=== PATIENT | male | born 1935 | race Caucasian/White ===

== ENCOUNTER 2022-08-03 12:50 | Emergency (ER) | payer OTHER ==
--- OUTSIDE RECORDS SUMMARY | 2022-08-03 13:13 | XMS REPORT | Continuity of Care Document ---
:1935 Author Organization [facility] t Address [address] [place] [address] [address] [place] [address] Care Team Providers Name Role Phone HILDA BAUTISTA Primary Care Physician Unavailable [id number] Attending Clinician Unavailable JUANCARLOS LAMB Attending Clinician Unavailable JUANCARLOS LAMB Attending Clinician Unavailable Juancarlos Lamb MD Attending Clinician Doctor Unassigned, [facility] Attending Clinician Unavailable Rosa IGLESIAS, Cristian Randle Attending Clinician Unavailable KAVEH VILLALBA Attending Clinician Unavailable Teresita Carver DO Attending Clinician Kaveh Villalba MD Attending Clinician Komal Carver Kelcey Attending Clinician Unavailable Tamiko Yanez Attending Clinician Unavailable Rk Stern Attending Clinician [id number] Admitting Clinician Unavailable KAVEH VILLALBA Admitting Clinician Unavailable Kaveh Villalba MD Admitting Clinician HILDA BAUTISTA Admitting Clinician Unavailable Komal Carver Kelcey Admitting Clinician Unavailable Tamiko Yanez Admitting Clinician Unavailable Payers Payer Name Policy Type Policy Number Effective Date Expiration Date [facility] [id number] 2021 MEDICARE GOLD PPO 00:00:00 CSNP [facility] [id number] Problems Condition Condition Condition Status Onset Resolution Last Treating Co mments Source Name Details Category Date Date Treatment Clinician Date Longstandi Longstandi Disease Active U nivers ng ng 5-13 [place] atrial 00 Medical fibrillati fibrillati Br anch on on Syncope Syncope Disease Active Univers and and 5-12 ity of collapse collapse 00:00: [place] 00 Medical Branch History of History Problem Active 2019-05-26 Memoria fall of fall 22:22:46 l (situation (situation He rmann ) ) Active Problem 05/26/2019 [facility] Hydrocepha Hydroceph Problem Active 2019-05-26 Memoria siva alus 22:22:46 l (disorder) (disorder) He rmann Active Problem 05/26/2019 [facility] Hypertensi Hypertens Problem Active 2019-05-26 Memoria ve antionette 22:22:46 l disorder, disorder, Herm margarette systemic systemic arterial arterial (disorder) (disorder) Active Problem 05/26/2019 [facility] Hypothyroi Hypothyro Problem Active 2019-05-26 Memoria dism idism 22:22:46 l (disorder) (disorder) He rmann Active Problem 05/26/2019 [facility] Lumbosacra Lumbosacr Problem Active 2019-05-26 Memoria l stenosis al 22:22:46 l (disorder) stenosis Herm margarette (disorder) Active Problem 05/26/2019 [facility] Tremor Tremor Problem Active 2019-05-26 Phill josue (finding) (finding) 22:22:46 l Active [place] Problem 05/26/2019 [facility] Atrial Atrial Problem Active 2019-05-26 Phill josue fibrillati fibrillati 22:22:46 l on on Angelo (disorder) (disorder) Active Problem 05/26/2019 [facility] Allergies, Adverse Reactions, Alerts Allergy Allergy Status Severity Reaction(s) Onset Inactive Treating Comm ents Source Name Type Date Date Clinician Lidocain Propensi Active Other - See DOP U nivers e ty to comments 9-14 states ity of adverse 00:00: that it [place] reaction 00 "stops Medical s his Branch heart" LIDOCAIN DRUG Active Other-Cmnt Univ ers E INGREDI 9-14 ity of 00:00: [address] procaine DA Active U [facility] 11-01 00:00: [address] lidocain DA Active U [facility] e 11-01 00:00: [address] procaine DA Active U [facility]ARD[facility] 11-01 00:00: [address] lidocain DA Active U [facility] 11-01 00:00: [address] dexameth dexameth Active Memori a asone asone l [place] tamsulos tamsulos Active Memori a in in l [place] Novocain Novocain Active Memori a chaitanya Stephens Social History Social Habit Start Date Stop Date Quantity Comments Source Exposure to 2021-09-05 2021-09-15 Not sure [facility]-CoV-2 00:00:00 14:14:00 [facility] (event) [place] Tobacco use and 2020-12-17 2020-12-17 Smokeless tobacco Un iversity of exposure 00:00:00 00:00:00 non-user [facility] Social History 2018-12-09 2018-12-09 [facility] ahmet 20:29:25 20:29:25 Sex [birth year] At [birth year] Universit y of 00:00:00 00:00:00 [facility] Smoking Status Start Date Stop Date Source Never smoked tobacco [facility] Medications Ordered Filled Start Stop Current Ordering Indication Dosage Frequency Signature Comments Components Source Medication Medication Date Date Medication? Clinician (SIG) Name Name rivastigmin Yes 1.5mg Take 1 Uni vers e tartrate 7-28 capsule by ity of 1.5 mg 00:00: mouth [place] capsule 00 every Medical morning Branch and evening. Call office for refills, will need mg increase at next refill. rivastigmin 2021- No [id number] 1{patch Apply 1 Univers e 4.6 mg/24 6-15 -28 } Patch to ity of hour patch 00:00: 00:00 skin [place] 00 :00 daily. [facility] Branch galantamine Yes [id number] 4mg Take 1 Univers 4 mg tablet 6-13 tablet by ity of 00:00: mouth 2 (two) Medical times Branch daily. Call when script runs out, and we will send out another. galantamine Yes [id number] 4mg Take 1 Univers 4 mg tablet 6-13 tablet by ity of 00:00: mouth 2 (two) Medical times Branch daily. Call when script runs out, and we will send out another. galantamine Yes [id number] 4mg Take 1 Univers 4 mg tablet 6-13 tablet by ity of 00:00: mouth 2 (two) Medical times Branch daily. Call when script runs out, and we will send out another. coconut oil Yes 1{capsu Take 1 U nivers 1,000 mg 5-14 le} capsule by ity o f Cap 22:20: mouth [place] 03 daily. Medical Branch Magnesium Yes 250mg Take 250 Uni vers 250 mg Tab 5-14 mg by ity of 22:20: mouth [place] 03 daily. Medical Branch coconut oil Yes 1{capsu Take 1 U nivers 1,000 mg 5-14 le} capsule by ity o f Cap 22:20: mouth [place] 03 daily. Medical Branch Magnesium Yes 250mg Take 250 Uni vers 250 mg Tab 5-14 mg by ity of 22:20: mouth [place] 03 daily. Medical Branch coconut oil Yes 1{capsu Take 1 U nivers 1,000 mg 5-14 le} capsule by ity o f Cap 22:20: mouth [place] 03 daily. Medical Branch Magnesium Yes 250mg Take 250 Uni vers 250 mg Tab 5-14 mg by ity of 22:20: mouth [place] 03 daily. Medical Branch coconut oil Yes 1{capsu Take 1 U nivers 1,000 mg 5-14 le} capsule by ity o f Cap 22:20: mouth [place] 03 daily. Medical Branch Magnesium 0 Yes 250mg Take 250 Uni vers 250 mg Tab 5-14 mg by ity of 22:20: mouth [place] 03 daily. Medical Branch levothyroxi 2021- No [id number] 88ug Take 1 Univers ne 88 mcg 5-14 06-14 tablet by ity of tablet 00:00: 04:59 mouth [place] 00 :00 every Medical morning Branch for 30 days. levothyroxi 2021-0 2- No [id number] 88ug Take 1 Univers ne 88 mcg 5-14 -14 tablet by ity of tablet 00:00: 04:59 mouth [place] 00 :00 every Medical morning Branch for 30 days. apixaban 2021-0 Yes 2.5mg Take 2.5 Univ ers (ELIQUIS) 5-13 mg by ity of 2.5 mg 10:26: mouth 2 [place] tablet 14 (two) Medical times Branch daily. tumeric-gin 2021-0 Yes 500mg Take 500 U nivers g-olive-ore 5-13 mg by ity of g-capryl 10:26: mouth [place] 100 mg-150 14 daily. Medical mg- 50 Branch mg-150 mg Cap cyanocobala 0 Yes Inject as U nivers min, 5-13 directed ity of vitamin 10:26: weekly. [place] B, 14 Medical (VITAMIN Branch B-12 INJECTION) apixaban 2021-0 Yes 2.5mg Take 2.5 Univ ers (ELIQUIS) 5-13 mg by ity of 2.5 mg 10:26: mouth 2 [place] tablet 14 (two) Medical times Branch daily. tumeric-gin 2021-0 Yes 500mg Take 500 U nivers g-olive-ore 5-13 mg by ity of g-capryl 10:26: mouth [place] 100 mg-150 14 daily. Medical mg- 50 Branch mg-150 mg Cap cyanocobala 2021-0 Yes Inject as U nivers min, 5-13 directed ity of vitamin 10:26: weekly. B-12, 14 Medical (VITAMIN Branch B-12 INJECTION) apixaban 2021-0 Yes 2.5mg Take 2.5 Univ ers (ELIQUIS) 5-13 mg by ity of 2.5 mg 10:26: mouth 2 [place] tablet 14 (two) Medical times Branch daily. tumeric-gin 2021-0 Yes 500mg Take 500 U nivers g-olive-ore 5-13 mg by ity of g-capryl 10:26: mouth [place] 100 mg-150 14 daily. Medical mg- 50 Branch mg-150 mg Cap cyanocobala 2022-0 Yes Inject as U nivers min, 5-13 directed ity of vitamin 10:26: weekly. [place] B-12, 14 Medical (VITAMIN Branch B-12 INJECTION) apixaban Yes 2.5mg Take 2.5 Univ ers (ELIQUIS) 5-13 mg by ity of 2.5 mg 10:26: mouth 2 [place] tablet 14 (two) Medical times Branch daily. tumeric-gin Yes 500mg Take 500 U nivers g-olive-ore 5-13 mg by ity of g-capryl 10:26: mouth [place] 100 mg-150 14 daily. Medical mg- 50 Branch mg-150 mg Cap cyanocobala Yes Inject as U nivers min, 5-13 directed ity of vitamin 10:26: weekly. [place] B-, 14 Medical (VITAMIN Branch B-12 INJECTION) Thyroxine Yes 150 Memoria 9-06 microgram, l 20:15: PO, Daily, [place] 00 0 Refill(s) Amlodipine Yes 2.5 mg, Phill josue 9-06 PO, Daily, l 20:15: 0 [place] 00 Refill(s) Vitamin B12 Yes Inj 2 a Mem oria 9-06 wk, 0 l 20:15: Refill(s) [place] 00 apixaban Yes 2.5 mg, Memori a 2.5 MG Oral 9-06 PO, BID, 0 l Tablet 20:15: Refill(s) Mario n [Eliquis] 00 Thyroxine Yes 150 Memoria 9-06 microgram, l 20:15: PO, Daily, [place] 00 0 Refill(s) Amlodipine Yes 2.5 mg, Phill josue 9-06 PO, Daily, l 20:15: 0 [place] 00 Refill(s) Vitamin B12 Yes Inj 2 a Mem oria 9-06 wk, 0 l 20:15: Refill(s) [place] 00 apixaban Yes 2.5 mg, Memori a 2.5 MG Oral 9-06 PO, BID, 0 l Tablet 20:15: Refill(s) Mario n [Eliquis] 00 Thyroxine Yes 150 Memoria 9-06 microgram, l 20:15: PO, Daily, [place] 00 0 Refill(s) Amlodipine Yes 2.5 mg, Phill josue 9-06 PO, Daily, l 20:15: 0 [place] 00 Refill(s) Vitamin B12 Yes Inj 2 a Mem oria 9-06 wk, 0 l 20:15: Refill(s) [place] 00 apixaban Yes 2.5 mg, Memori a 2.5 MG Oral 9-06 PO, BID, 0 l Tablet 20:15: Refill(s) Mario n [Eliquis] Thyroxine Yes 150 Memoria 9-06 microgram, l 20:15: PO, Daily, Angel[place] 0 Refill(s) Amlodipine Yes 2.5 mg, Phill josue 9-06 PO, Daily, l 20:15: 0 [place] 00 Refill(s) Vitamin B12 Yes Inj 2 a Mem oria 12-09 wk, 0 l 20:15: Refill(s) apixaban Yes 2.5 mg, Memori a 2.5 MG Oral -06 PO, BID, 0 l Tablet 20:15: Refill(s) Mario n [Eliquis] 00 Thyroxine Yes 150 Memoria 9-06 microgram, l 20:15: PO, Daily, 0 Refill(s) Amlodipine Yes 2.5 mg, Phill josue 9-06 PO, Daily, l 20:15: 0 [place] 00 Refill(s) Vitamin B12 Yes Inj 2 a Mem oria 12-09 wk, 0 l 20:15: Refill(s) apixaban Yes 2.5 mg, Memori a 2.5 MG Oral 9-06 PO, BID, 0 l Tablet 20:15: Refill(s) Mario n [Eliquis] 00 Vital Signs Vital Name Observation Time Observation Value Comments Source Systolic blood 2021-09-15 19:31:00 134 mm[Hg] [facility] pressure [facility] Branch Diastolic blood 2021-09-15 19:31:00 67 mm[Hg] [facility] [place] pressure [facility] Heart rate 2021-09-15 19:31:00 62 /min [facility] Systolic (mm Hg) 2019-02-17 19:31:00 Phill rial [place] Diastolic (mm Hg) 2019-02-17 19:31:00 Mem orial [place] Heart Rate 2019-02-17 19:31:00 [facility] [place] Respitory Rate 2019-02-17 19:31:00 Memori al [place] Height 2019-02-17 19:31:00 172.72 cm Memorial [place] Weight 2019-02-17 19:31:00 [facility] [place] BMI Calculated 2019-02-17 19:31:00 Memori al [place] Systolic (mm Hg) 2019-01-05 20:02:00 Phill rial [place] Diastolic (mm Hg) 2019-01-05 20:02:00 Mem orial [place] Heart Rate 2019-01-05 20:02:00 Memorial [place] Respitory Rate 2019-01-05 20:02:00 Memori al [place] Height 2019-01-05 20:02:00 172.72 cm Memorial [place] Weight 2019-01-05 20:02:00 Memorial [place] BMI Calculated 2019-01-05 20:02:00 Memori al [place] Systolic (mm Hg) 2018-12-09 20:05:00 Phill rial [place] Diastolic (mm Hg) 2018-12-09 20:05:00 Mem orial [place] Heart Rate 2018-12-09 20:05:00 Memorial [place] Respitory Rate 2018-12-09 20:05:00 Memori al [place] Height 2018-12-09 20:05:00 177.8 cm Memorial [place] Weight 2018-12-09 20:05:00 Memorial [place] BMI Calculated 2018-12-09 20:05:00 Memori al [place] Procedures Procedure Date / Time Performed Performing Clinician [facility] e REFERRAL- 2021-08-29 05:01:00 Doctor Unassigned, No [facility] REQUEST/RESPONSE Name Medical Branch Encounters Start End Encounter Admission Attending Care Care Encounter Source Date/Time Date/Time Type Type Clinicians Facility Department ID 2021-05-01 Outpatient [id number] ENCPL REF [id number] [facility] 12:37:58 0803 Health Rehabil itation Jyotsna prince 2022-03-17 2022-03-17 Outpatient JUANCARLOS EVANS [facility] [id number] Univers 14:20:00 14:20:00 JUANCARLOS LAMB edenilson [facility] 2022-03-17 2022-03-17 Outpatient R JUANCARLOS LAMB [facility] [id number] Univers 14:20:00 14:20:00 JUANCARLOS LAMB [facility] 2021-10-30 2021-10-30 Telephone Adonis [facility] [id number] Univers 00:00:00 00:00:00 [facility] [id number] ity of [place] 4.2.7.2.686 Anibal as DARINEL?BLEA [id number] [address] OFFICE [facility] 2021-09-17 2021-09-17 Telephone Adonis [facility] 1.2.840.114 [id number] Univers 00:00:00 00:00:00 [facility] [id number] ity of [place] [id number] Anibal as DARINEL?BLEA [id number] [address] OFFICE [facility] 2021-09-17 2021-09-17 Telephone [facility] 1.2.840.114 [id number] Univers 00:00:00 00:00:00 [facility] [id number] ity of [place] [id number] Anibal as DARINEL?BLEA [id number] [address] OFFICE [facility] 2021-09-15 2021-09-15 Outpatient Aly MATIASJenaro JUANCARLOS [facility] [id number] Univers 14:20:00 15:23:04 JUANCARLOS LAMB edenilson [facility] 2021-09-15 2021-09-15 Office Adonis, [facility] 1.2.840.114 [id number] Univers 14:20:00 15:23:04 Visit [facility] [id number] ity of [place] 4.2.7.2.686 Anibal as DARINEL?BLEA [id number] [address] OFFICE [facility] 2021-09-15 2021-09-15 Outpatient R JUANCARLOS LAMB [facility] [id number] Univers 14:20:00 15:23:04 JUANCARLOS LAMB itedenilson [facility] 2021-08-29 2021-08-29 Orders Doctor BERNARD 1.2.840.114 [id number] Univers 00:00:00 00:00:00 Only Unassigned, ESTUARDO [id number] ity of [facility] 4.2.7.2.686 Anibal as [id number] [facility] 009 [place] 2021-08-18 2021-08-18 Transition VAN Lee 1.2.840.114 [id number] Univers 00:00:00 00:00:00 of Care Cristian Jer ERIC [id number] ity of [place] 4.2.7.2.686 [place] [id number] [facility] 403 [place] 2021-08-14 2021-08-15 Outpatient X DEEJAY [facility] [id number] Univers 10:48:00 10:20:00 [facility] 2021-08-14 2021-08-15 Emergency Teresita Carver [facility] 1.2.8 40.114 [id number] Univers 10:48:00 10:20:00 Kaveh Villalba 350.1.13.10 ity of [place] 4.2.7.2.686 [place] [facility] [id number] [facility] 081 Branch 2021-03-12 2021-03-12 Outpatient R [facility] [id number] Univers 00:00:00 00:00:00 ity of [facility] 2021-03-12 2021-03-12 Orders Doctor WAGNER 1.2.840.114 [id number] Univers 00:00:00 00:00:00 Only Unassigned, ESTUARDO [id number] ity of [facility] 4.2.7.2.686 Anibal as [id number] [facility] 009 [place] 2021-01-20 2021-01-20 Telephone Adonis [facility] 1.2.840.114 [id number] Univers 00:00:00 00:00:00 Juancarlos [facility] [id number] ity of [place] 4.2.7.2.686 Anibal as Darinel?Blea [phone] [address] Office [facility] 2021-01-13 2021-01-13 Office [facility] 1.2.840.114 [id number] Univers 10:31:44 11:26:45 Visit Juancarlos [facility] [id number] ity of [place] 4.2.7.2.686 Anibal as Darinel?Blea [id number] [address] Office [facility] 2021-01-13 2021-01-13 Outpatient Aly LAMB JUANCARLOS [facility] [id number] Univers 11:00:00 11:00:00 ADONIS JUANCARLOS ricardo [facility] 2020-12-26 2020-12-26 [facility] 1.2.594.607 [id number] Univers 12:27:34 23:59:00 Encounter Juancarlos [place] [id number] ity of [place] 4.2.7.2.686 [place] [id number] [address] 2020-12-26 2020-12-26 Outpatient JUANCARLOS [facility] [id number] Univers 00:00:00 00:00:00 ADONIS JUANCARLOS silav [facility] 2020-12-26 2020-12-26 Orders Doctor BERNARD 1.2.840.114 [id number] Univers 00:00:00 00:00:00 Only Unassigned, ESTUARDO 350.1.13.10 ity of [place] [facility] 4.2.7.2.686 Anibal as [id number] [address] 2020-12-17 2020-12-17 Office [facility] 1.2.840.114 [id number] Univers 15:26:24 16:40:09 Visit Juancarlos [facility] [id number] ity of [place] 4.2.7.2.686 Anibal as Darinel?Blea [phone] [address] Office [facility] 2020-12-17 2020-12-17 Outpatient JUANCARLOS [facility] [id number] Univers 10:00:00 10:00:00 JUANCARLOS LAMB ity of [facility] 2020-12-17 2020-12-17 Orders Doctor BERNARD 1.2.840.114 [id number] [facility] 00:00:00 00:00:00 Only Unassigned, ESTUARDO 350.1.13.10 ity of [place] [facility] 4.2.7.2.686 Anibal as [id number] [place] [address] Branch 2020-11-09 2020-11-20 Inpatient 3 ACOSTA Carver [facility] [id number] [facility] 11:57:00 12:00:00 Komal 0807 Health Rehabil itation Jyotsna prince 2020-11-02 2020-11-03 Inpatient ETHEL BatistaWillaMily [facility] [id number] [facility] 05:36:00 11:15:00 Tamiko 23 [facility] 2019-05-24 2019-05-24 Ambulatory nullFlavo MNA [id number] Memoria 15:30:00 15:30:00 Pre-Reg r Neurology 03 l [place] Angelo 2019-05-24 2019-05-24 Ambulatory nullFlavo MNA [id number] Memoria 15:30:00 15:30:00 Pre-Reg r Neurology 03 l Daren Stephens 2019-05-24 2019-05-24 Outpatient MHIE MHIE [id number] Memoria 09:30:00 09:30:00 03 l [place] 2019-05-24 2019-05-24 Outpatient CORNELIUS SternMISCHER MHMISCHER [id number] 09:30:00 09:30:00 Rk 03 [place] 2019-02-17 2019-02-18 Outpatient nullFlavo MNA [id number] Memoria 19:45:00 05:59:59 r Neurology 02 l Daren Stephens 2019-02-17 2019-02-18 Outpatient nullFlavo MNA [id number] Memoria 19:45:00 05:59:59 r Neurology 02 l Daren Stephens 2019-02-17 2019-02-17 Outpatient CORNELIUS SternMISCHER MHMISCHER [id number] 13:45:00 23:59:59 Rk 02 [place] 2019-02-17 2019-02-17 Outpatient MHIE MHIE [id number] Memoria 13:45:00 13:45:00 02 chaitanya Angeol 2019-01-18 2019-01-18 Orders Doctor BERNARD 1.2.840.114 [id number] Univers 00:00:00 00:00:00 Only Unassigned, ESTUARDO 350.1.13.10 ity of [facility] 4.2.7.2.686 Anibal as [id number] [address] 2019-01-18 2019-01-18 Orders Doctor BERNARD 1.2.840.114 [id number] 00:00:00 00:00:00 Only Unassigned, ESTUARDO 350.1.13.10 [facility] 4.2.7.2.686 [id number] [facility] 2019-01-05 2019-01-06 Outpatient nullFlavo MNA [id number] Memoria 20:30:00 04:59:59 r Neurology 01 l Daren Stephens 2019-01-05 2019-01-06 Outpatient nullFlavo MNA [id number] Memoria 20:30:00 04:59:59 r Neurology 01 l Daren Stephens 2019-01-05 2019-01-05 Outpatient EVA SternSCHJACQUES MHMISCHER [id number] 15:30:00 23:59:59 Rk 01 [place] 2019-01-05 2019-01-05 Outpatient MHIE MHIE [id number] Memoria 15:30:00 15:30:00 01 chaitanya Stephens 2018-12-09 2018-12-10 Outpatient nullFlavo MNA [id number] Memoria 20:00:00 04:59:59 r Neurology 00 l Daren Stephens 2018-12-09 2018-12-10 Outpatient nullFlavo MNA [id number] Memoria 20:00:00 04:59:59 r Neurology 00 l Daren Stephens 2018-12-09 2018-12-09 Outpatient EVA SternSCHER MHMISCHER 004 [id number] 15:00:00 23:59:59 Rk 00 [place] 2018-12-09 2018-12-09 Outpatient MHIE MHIE [id number] Memoria 15:00:00 15:00:00 00 chaitanya Stephens Results Test Description Test Time Test Comments Results Result Comments Source - XR CHEST 1V 2020-11-03 08:29:00 [facility] 1935 Sex: M Patient Name: PAULA SHAH Unit No: [id number] EXAMS: CPT CODE: [id number] XR CHEST 1V 23941 STUDY: Chest radiograph HISTORY: Status post ICD COMPARISON: 11/02/2020 TECHNIQUE: Frontal view of the chest. SITE: C3 FINDINGS: Left chest single lead pulse generator is again seen in similar position. The cardiac silhouette is mildly enlarged, stable in size. There is decreased pulmonary vascular congestion. There is no large pleural effusion or discernible pneumothorax. IMPRESSION: Decreased pulmonary vascular congestion. at 0829 Reported and signed by: Justin Gray MD CC: Chava Mera MD; Tamiko Yanez MD Technologist: Jhoan Argueta, RT(R) Transcrpt Date/Tm/Trnsp: 11/03/2020 (0829) [id number] Orig Print D/T: S: 11/03/2020 (0832) [facility] NAME: PAULA SHAH [address] [place] PHYS: [place] [address] : 1935 AGE: 85 SEX: M LOC: [id number] A PHONE #: [phone] EXAM DATE: 11/03/2020 STATUS: ADM IN FAX #: [phone] RADIOLOGY NO: PAGE 1 Signed Report CBC W/AUTO DIFF 2020-11-03 05:09:00 Test Item Value Reference Range Interpretation Comme nts WHITE BLOOD CELL (test code = WBC) 7.8 K/MM3 3.8-9.8 N RED BLOOD CELL (test code = RBC) 4.62 M/MM3 3.95-5.67 N HEMOGLOBIN (test code = HGB) 14.3 G/DL 12.4-16.7 N HEMATOCRIT (test code = HCT) 42.0 % 35.9-49.5 N MEAN CELL VOLUME (test code = MCV) 91 fL 81.7-96.1 N MEAN CELL HGB (test code = MCH) 31.0 pg 27.6-33.2 N MEAN CELL HGB CONCETRATION (test code = MCHC) 34.0 % 32.9-35. 5 N RED CELL DISTRIBUTION WIDTH (test code = RDW) 13.3 % 12.1-15. 2 N PLATELET COUNT (test code = PLT) 201 K/MM3 129-368 N MEAN PLATELET VOLUME (test code = MPV) 10.1 fl 7.4-10.4 N NEUTROPHIL % (test code = NT%) 57.2 % 43-75 N IMMATURE GRANULOCYTE % (test code = IG%) 0.1 % 0.0-2.0 N LYMPHOCYTE % (test code = LY%) 31.2 % 14-44 N MONOCYTE % (test code = MO%) 10.0 % 4-13 N EOSINOPHIL % (test code = EO%) 1.1 % 0-6 N BASOPHIL % (test code = BA%) 0.4 % 0-2 N NUCLEATED RBC % (test code = NRBC%) 0.0 % 0-1.0 N NEUTROPHIL # (test code = NT#) 4.48 K/mm3 2.0-7.6 N IMMATURE GRANULOCYTE # (test code = IG#) 0.01 x10 3/uL 0-0.03 N LYMPHOCYTE # (test code = LY#) 2.44 K/mm3 1.0-3.8 N MONOCYTE # (test code = MO#) 0.78 K/mm3 0.1-0.8 N EOSINOPHIL # (test code = EO#) 0.09 K/mm3 0.0-0.2 N BASOPHIL # (test code = BA#) 0.03 K/mm3 0.0-0.2 N NUCLEATED RBC # (test code = NRBC#) 0.00 K/mm3 0.0-0.1 N BASIC METABOLIC [id number] 05:07:00 Test Item Value Reference Range Interpretation Comments SODIUM (test code = 131 MMOL/L 137-145 L NA) POTASSIUM (test code = 3.9 MMOL/L 3.5-5.1 N K) CHLORIDE (test code = 97 MMOL/L 98-107 L CL) CARBON DIOXIDE (test 24 MMOL/L 22-30 N code = CO2) GLUCOSE (test code = 99 MG/DL 74-106 N GLU) BLOOD UREA NITROGEN 13 MG/DL 9-20 N (test code = BUN) GLOMERULAR FILTRATION > 60 Report ing units: RATE (test code = GFR) ml/mi n/1.73 m2 (Modified MDRD Formula)Referen ce Range: > or = 6 0 ml/min/1.73 m2 CREATININE (test code 0.80 MG/DL 0.66-1.25 N = CREAT) CALCIUM (test code = 9.3 MG/DL 8.4-10.2 N CA) - XR CHEST [id number] 10:02:00 [facility] 1935 Sex: M Patient Name: PAULA SHAH Unit No: [id number] EXAMS: CPT CODE: [id number] XR CHEST 1V [id number] INDICATION: S/P ICD LOCATION: T18 COMPARISON STUDY: comparison not available. FINDINGS: Single view of the chest. There is a single lead left subclavian cardiac conduction device. No pneumothorax. Prominent interstitial markings bilaterally. No significant pleural effusion. Cardiomegaly. Chronic degenerative changes are present within the visualized osseous structures. No acute osseous findings. IMPRESSION: 1. Single lead left subclavian cardiac conduction device is seen without evidence of pneumothorax.2. Prominent interstitial markings bilaterally may represent atelectasis, pulmonary edema, or pneumonia. 3. Cardiomegaly. at 1002 Reported and signed by: Jhoan Sutton MD CC: Chava Mera MD Technologist: Donna Burrell, RT(R) Transcrpt Date/Tm/Trnsp: 11/02/2020 (1002) t.MARY [email or web address] Orig Print D/T: S: 11/02/2020 (1005) [facility] NA ME: [id number] [address] [id number] [address] PHYS: [place] [address] : 1935 AGE: 85 SEX: M LOC: Z.DC4T B PHONE #: [phone] EXAM DATE: 11/02/2020 STATUS: ADM IN FAX #: [phone] RADIOLOGY NO: PAGE 1 Signed ReportBASIC METABOLIC [id number] 07:04:00 Test Item Value Reference Range Interpretation Comments SODIUM (test code = 132 MMOL/L 137-145 L NA) POTASSIUM (test code = 4.1 MMOL/L 3.5-5.1 N K) CHLORIDE (test code = 96 MMOL/L 98-107 L CL) CARBON DIOXIDE (test 27 MMOL/L 22-30 N code = CO2) GLUCOSE (test code = 100 MG/DL 74-106 N GLU) BLOOD UREA NITROGEN 16 MG/DL 9-20 N (test code = BUN) GLOMERULAR FILTRATION > 60 Report ing units: RATE (test code = GFR) ml/mi n/1.73 m2 (Modified MDRD Formula)Referen ce Range: > or = 6 0 ml/min/1.73 m2 CREATININE (test code 0.90 MG/DL 0.66-1.25 N = CREAT) CALCIUM (test code = 9.5 MG/DL 8.4-10.2 N CA) Is this a LINE draw? NLIPID PROFILE (CORONARY RISK)2020-11-02 07:04:00 Test Item Value Reference Range Interpretation Comments TRIGLYCERIDES (test 87 MG/DL TRIGLYCE RIDES code = TRIG) REFERENCE RANGE:Normal: < 150 mg/dLBorderline High: 150-199 mg/dLHi gh: 200-499 mg/dLVe ry High: >=500 mg/ dL CHOLESTEROL (test code 152 MG/DL <200 = CHOL) HDL CHOLESTEROL (test 41 MG/DL 40-59 N code = HDL) LIPOPROTEIN LDL (test 77 MG/DL 0-99 N OPTIM AL.........<100 code = LDL) mg/dLNEAR OPTIMAL/ABOVE OPTIMAL........ .100-12 9 mg/dL BORDERL INE HIGH.........13 0-159 mg/dL HIGH.........16 0-189 mg/dL VERY HIGH.........>/ = 190 mg/dL Is this a LINE draw? [id number] 07:04:00 Test Item Value Reference Range Interpretation Comments MAGNESIUM (test code = MAG) 2.1 MG/DL 1.6-2.3 N Is this a LINE draw? NCOVID 19 Asymptomatic IH [id number] 06:56:00 Test Item Value Reference Range Interpretation Comments COVID 19 NEGATIVE Negative "Negative resul ts from Asymptomatic IH AG patients with symptom (test code = onset beyondfiv e days, COVNONPUIAG) should be treat ed as presumptive, andconfirmation with a molecular assay , if necessary forpa tient management may be performed. Nega tive results do notr ule out COVID-19 and sh ould not be used as the sole basisfor treatm ent or patient managem ent decisions, includinginfect ion control decisio ns. Negative result s should beconsidered in the context of a pa tients recent exposure s,history, and the presenc e of clinical signs and symptomsconsist ent with COVID-19.This t est detects both vi able andnon-viable S ARS-CoV and SARS CoV-2. Test performance dep endson the amount of virus (antigen) in the sample." BASIC METABOLIC [id number] 06:53:00 Test Item Value Reference Range Interpretation Comments SODIUM (test code = 132 MMOL/L 137-145 L NA) POTASSIUM (test code = 4.1 MMOL/L 3.5-5.1 N K) CHLORIDE (test code = 96 MMOL/L 98-107 L CL) CARBON DIOXIDE (test 27 MMOL/L 22-30 N code = CO2) GLUCOSE (test code = 100 MG/DL 74-106 N GLU) BLOOD UREA NITROGEN 16 MG/DL 9-20 N (test code = BUN) GLOMERULAR FILTRATION > 60 Report ing units: RATE (test code = GFR) ml/mi n/1.73 m2 (Modified MDRD Formula)Referen ce Range: > or = 6 0 ml/min/1.73 m2 CREATININE (test code 0.90 MG/DL 0.66-1.25 N = CREAT) CALCIUM (test code = 9.5 MG/DL 8.4-10.2 N CA) Is this a LINE draw? NLIPID PROFILE (CORONARY RISK)2020-11-02 06:53:00 Test Item Value Reference Range Interpretation Comments TRIGLYCERIDES (test 87 MG/DL TRIGLYCE RIDES code = TRIG) REFERENCE RANGE:Normal: < 150 mg/dLBorderline High: 150-199 mg/dLHi gh: 200-499 mg/dLVe ry High: >=500 mg/ dL CHOLESTEROL (test code 152 MG/DL <200 = CHOL) HDL CHOLESTEROL (test 41 MG/DL 40-59 N code = HDL) LIPOPROTEIN LDL (test MG/DL 0-99 code = LDL) Is this a LINE draw? [id number] 06:53:00 Test Item Value Reference Range Interpretation Comments MAGNESIUM (test code = MAG) 2.1 MG/DL 1.6-2.3 N Is this a LINE draw? NPROTHROMBIN [id number] 06:49:00 Test Item Value Reference Range Interpretation Comments PROTHROMBIN TIME 12.6 SECONDS 9.5-12.7 N PATIENT (test code = PTP) INTERNATIONAL NORMAL 1.1 0.86-1.14 N The INR is to be RATIO (test code = used only for INR) monitoring oral anticoagulantth erap y. INDICATION I NR VALUE ---- ---- ---- -------1. Prophylaxis, de ep venous thrombos is, including high risk surgery. 2.0 - 3.0 2. Prophylaxis, deep venous thrombosis, hip surgery, treatm ent for deep venous thrombosis or pulmonary prevention of systemic emboli sm in patients wit h valvular heart disease, atrial fibrillation, tissue heart va lve, or acute myocar dial infarction. 2.0 - 3.0 3. Track Laying Supervisor al prosthesis hear t valves, recurre nt systemic emboli sm. 3.0 - 4.5 PTT [id number] 06:49:00 Test Item Value Reference Range Interpretation Comments PTT ACTIVATED (test code = APTT) 34.0 SECONDS 25.1-36.5 N CBC W/AUTO [id number] 06:47:00 Test Item Value Reference Range Interpretation Comments WHITE BLOOD CELL (test code = 6.8 K/MM3 3.8-9.8 N WBC) RED BLOOD CELL (test code = 4.81 M/MM3 3.95-5.67 N RBC) HEMOGLOBIN (test code = HGB) 14.6 G/DL 12.4-16.7 N HEMATOCRIT (test code = HCT) 44.3 % 35.9-49.5 N MEAN CELL VOLUME (test code = 92 fL 81.7-96.1 N MCV) MEAN CELL HGB (test code = MCH) 30.4 pg 27.6-33.2 N MEAN CELL HGB CONCETRATION 33.0 % 32.9-35.5 N (test code = MCHC) RED CELL DISTRIBUTION WIDTH 13.3 % 12.1-15.2 N (test code = RDW) PLATELET COUNT (test code = 201 K/MM3 129-368 N PLT) MEAN PLATELET VOLUME (test code 10.2 fl 7.4-10.4 N = MPV) NEUTROPHIL % (test code = NT%) 50.2 % 43-75 N IMMATURE GRANULOCYTE % (test 0.3 % 0.0-2.0 N code = IG%) LYMPHOCYTE % (test code = LY%) 37.5 % 14-44 N MONOCYTE % (test code = MO%) 10.1 % 4-13 N EOSINOPHIL % (test code = EO%) 1.3 % 0-6 N BASOPHIL % (test code = BA%) 0.6 % 0-2 N NUCLEATED RBC % (test code = 0.0 % 0-1.0 N NRBC%) NEUTROPHIL # (test code = NT#) 3.39 K/mm3 2.0-7.6 N IMMATURE GRANULOCYTE # (test 0.02 x10 3/uL 0-0.03 N code = IG#) LYMPHOCYTE # (test code = LY#) 2.53 K/mm3 1.0-3.8 N MONOCYTE # (test code = MO#) 0.68 K/mm3 0.1-0.8 N EOSINOPHIL # (test code = EO#) 0.09 K/mm3 0.0-0.2 N BASOPHIL # (test code = BA#) 0.04 K/mm3 0.0-0.2 N NUCLEATED RBC # (test code = 0.00 K/mm3 0.0-0.1 N NRBC#) Is this a LINE draw? N
[2022-08-03 13:18] LABS: Absolute Lymphocytes (CBC) 1.8 K/uL (0.7-4.9); Hematocrit 42.4 % (39.6-49.0); Lymphocytes % 25.9 % (15.3-44.8); MCV 93.2 fL (80-100); MPV 8.6 fL (7.6-11.3); RBC Red Blood Cell Count 4.55 M/uL (4.33-5.43)
--- NOTE | 2022-08-03 13:22 | RAD REPORT ---
EXAM DESCRIPTION: CT - Head Brain Wo Cont - 08/03/2022 1:11 pm CLINICAL HISTORY: SYNCOPE COMPARISON: No comparisons TECHNIQUE: Noncontrast head CT images ad were obtained without IV contrast. Multiplanar reformats we re generated and reviewed. All CT scans are performed using dose optimization technique as appropriate and may include automated exposure control or mA/KV adjustment according to patient size. FINDINGS: No intracranial hemorrhage, mass, or edema. Midline structures are unremarkable. Moderate diffuse parenchymal volume loss with corresponding ventricular prominence. Right basal ganglia focus of near CSF density, may represent a small infarct, probably chronic. Other patchy deep white matter hypoattenuation, nonspecific, but suggestive of chronic small vessel ischem ic changes. Torres-white matter differentiation otherwise is preserved, without evidence of acute infarct. No abnor mal extra-axial fluid collections. Mastoid air cells and visualized portions of the paranasal sinuses are clear. No acute bony findings. IMPRESSION: No evidence of an acute intracranial process. Right basal ganglia focus of near CSF density suggestive of a small remote infarct. Other patchy deep white matter hypodensities, nonspecific, most suggestive of chronic small vessel ischemic changes.
[2022-08-03] MEDS ORDERED: MAGNESIUM SULFATE 1 gm IVPB 1 GM/100 ML BAG IV ONE (13:59)
[2022-08-03 14:41] LABS: Protime INR 1.31
[2022-08-03 14:57] LABS: Albumin 3.3 g/dL (3.4-5.0); Bilirubin Direct 0.4 mg/dL (0-0.2); Magnesium 2.3 mg/dL (1.6-2.4); Potassium 4.4 mEq/L (3.5-5.1); Protein, Total 6.9 g/dL (6.4-8.2); Troponin High Sensitivity 44.3 pg/mL (<58.9)
[2022-08-03] MEDS ORDERED: NA CHLORIDE 0.9% 500 ML ONE (15:13)
--- NOTE | 2022-08-03 15:31 | RAD REPORT ---
EXAM DESCRIPTION: Jamila Single View08/03/2022 1:44 pm CLINICAL HISTORY: syncope COMPARISON: No comparisons TECHNIQUE: Portable AP view of the chest. FINDINGS: The lungs are clear. No pneumothorax or effusion. The cardiomediastinal contours are unrem arkable. IMPRESSION: No acute cardiopulmonary process.
[2022-08-03 16:52] LABS: Urine Bilirubin NEGATIVE (Negative); Urine Blood Negative (Negative); Urine Clarity Clear (Clear); Urine Color Yellow (Yellow); Urine Glucose NEGATIVE (Negative); Urine Protein NEGATIVE (Negative); Urine Urobilinogen 0.2 mg/dL (0.2-1.0); Urine pH 6.5 (5.0-7.0)
[2022-08-03 16:53] LABS: Urine Bacteria None Seen /HPF (<20); Urine Mucus 1+ /HPF (None Seen); Urine RBC <5 /HPF (None Seen)
--- NOTE | 2022-08-03 17:02 | EDPHYS ---
Physician Documentation [facility] Name: Aj Caraballo Age: 87 yrs Sex: Male : 1935 Arrival Date: 08/03/2022 Time: 12:50 Bed 5 Private MD: ED Physician Jamie Marte HPI: 08/03 14:19 This 87 yrs old Male presents to ER via EMS with complaints of Syncope. rn 14:19 The patient has experienced syncope, became unresponsive, lost consciousness. Onset: rn The symptoms/episode began/occurred just prior to arrival. Duration: This was a single episode. Associated injury: The patient did not suffer any apparent associated injury. Current symptoms: Currently, the patient is not experiencing any symptoms. The patient has experienced similar episodes in the past. reports was washing car, patient was seated, felt like needed to go inside, but then passed out. No seizure activity. No recent illness. NO fever. No chest pain/sob/abd pain/vomiting/diarrhea. Patient feels normal, denies pain, and confirms that he is at baseline.. Historical: - Allergies: 14:06 Lidocaine; ld1 - Home Meds: 14:05 Eliquis 5 mg oral tablet once [Active]; ld1 - PMHx: 14:05 Atrial fibrillation; Hypothyroidism; ld1 - PSHx: 14:05 None; ld1 - Immunization history:: Adult Immunizations up to date, Client reports receiving the 2nd dose of the Covid vaccine. - Social history:: Smoking status: Patient denies any tobacco usage or history of. Patient/guardian denies using alcohol. - Family history:: not pertinent. - Hospitalizations: : No recent hospitalization is reported. ROS: 14:19 Constitutional: Negative for fever, chills, and weight loss, Neck: Negative for injury, rn pain, and swelling, Cardiovascular: Negative for chest pain, palpitations, and edema, Respiratory: Negative for shortness of breath, cough, wheezing, and pleuritic chest pain, Abdomen/GI: Negative for abdominal pain, nausea, vomiting, diarrhea, and constipation, MS/Extremity: Negative for injury and deformity, Skin: Negative for injury, rash, and discoloration, Neuro: Negative for headache, weakness, numbness, tingling, and seizure. Exam: 14:19 Constitutional: This is a well developed, well nourished patient who is awake, alert, rn and in no acute distress. Head/Face: Normocephalic, atraumatic. ENT: dry MM Cardiovascular: Regular rate, irregular rhythm. No pulse deficits. Respiratory: No increased work of breathing, no retractions or nasal flaring. Abdomen/GI: Soft, non-tender Skin: Warm, dry MS/ Extremity: Pulses equal, no cyanosis. Neuro: Awake and alert, GCS 15, oriented to person, place, and situation. Cranial nerves II-XII grossly intact. Motor strength 4/5 in all extremities. Sensory grossly intact. 14:54 ECG was reviewed by the Attending Physician. rn Vital Signs: 12:54 BP 130 / 56; Pulse 64; Resp 16; Temp 97.6(A); Pulse Ox 100% on R/A; Weight 66.5 kg; ld1 Height 5 ft. 9 in. ; Pain 0/10; 14:03 BP 126 / 74; Pulse 66; Resp 18; Pulse Ox 98% on R/A; ld1 15:32 BP 143 / 80; Pulse 68; Resp 18; Pulse Ox 100% ; ld1 16:43 BP 144 / 100; Pulse 71; Resp 18; Pulse Ox 95% on R/A; ld1 12:54 Body Mass Index 21.65 (66.50 kg, 175.26 cm) ld1 12:54 Pain Scale: Adult ld1 NIH Stroke Scale Scores: 12:54 NIHSS Score: 0 ld1 MDM: 12:55 Patient medically screened. rn 16:59 Differential Diagnosis: cardiac arrhythmia, cerebrovascular accident, emotional rn response, idiopathic syncope, vasovagal episode. Differential Diagnosis: transient ischemic attack. Data reviewed: vital signs, nurses notes. Data reviewed: lab test result(s), EKG, radiologic studies, and as a result, I will discharge patient. Consideration of Admission/Observation Escalation of care including admission/observation considered. Spoke with , states has done this multiple times without clear diagnosis, would rather take him home because has dementia and worsens at night and when in hospital. She states will watch him, understands what to look for, and will return if anything changes. . Counseling: I had a detailed discussion with the patient and/or guardian regarding: the historical points, exam findings, and any diagnostic results supporting the discharge/admit diagnosis, lab results, radiology results, the need for outpatient follow up, to return to the emergency department if symptoms worsen or persist or if there are any questions or concerns that arise at home. Response to treatment: the patient's symptoms have resolved after treatment, the patient's condition has returned to base line, and as a result, I will discharge patient. Special discussion: Based on the history and exam findings, there is no indication for further emergent testing or inpatient evaluation. I discussed with the patient/guardian the need to see the primary care provider for further evaluation of the symptoms. 08/03 12:55 Order name: Basic Metabolic Panel; Complete Time: 15: rn 08/03 12:55 Order name: CBC with Diff; Complete Time: 14:10 rn 08/03 12:55 Order name: Hepatic Function; Complete Time: 15: rn 08/03 12:55 Order name: Magnesium; Complete Time: 15: rn 08/03 12:55 Order name: Protime (+inr); Complete Time: 15: rn 08/03 12:55 Order name: Ptt, Activated; Complete Time: 15: rn 08/03 12:55 Order name: Troponin High Sensitivity; Complete Time: 15: rn 08/03 12:56 Order name: Urinalysis w/ reflexes; Complete Time: 16:55 rn 08/03 12:56 Order name: BNP; Complete Time: 15: rn 08/03 13:21 Order name: Glucose, Ancillary Testing; Complete Time: 14:10 EDMS 08/03 12:56 Order name: CT Head Brain wo Cont; Complete Time: 14:10 rn 08/03 12:56 Order name: Chest Single View XRAY; Complete Time: 15:32 rn 08/03 12:56 Order name: EKG; Complete Time: 12:56 rn 08/03 12:56 Order name: Cardiac monitoring; Complete Time: 12:59 rn 08/03 12:56 Order name: EKG - Nurse/Tech; Complete Time: 13:06 rn 08/03 12:56 Order name: IV Saline Lock; Complete Time: 12:59 rn 08/03 12:56 Order name: Labs collected and sent; Complete Time: 13:06 rn 08/03 12:56 Order name: O2 Per Protocol; Complete Time: 12:59 rn 08/03 12:56 Order name: O2 Sat Monitoring; Complete Time: 12:59 rn 08/03 13:28 Order name: Labs - recollect needed: recollect green and blue top; Complete Time: 14:03 bd EC:54 Rate is 69 beats/min. Rhythm is irregularly irregular. Left axis deviation noted. QRS rn is positive in lead I and negative in lead aVF. QRS interval is normal. T waves are Normal. No ST changes noted. Clinical impression: Atrial Fibrillation and Demand pacemaker. Interpreted by me. Reviewed by me. Administered Medications: 14:03 Drug: Magnesium Sulfate IVPB 1 grams Route: IVPB; Infused Over: 1 hrs; Site: left ld1 antecubital; 15:10 Drug: NS 0.9% IV 500 ml Route: IV; Rate: bolus; Site: left antecubital; nj1 Disposition Summary: 08/03/22 17:01 Discharge Ordered Location: Home rn Problem: new rn Symptoms: have improved rn Condition: Stable rn Diagnosis - Syncope rn Followup: rn - With: Private Physician - When: As needed - Reason: Recheck today's complaints, Re-evaluation by your physician Discharge Instructions: - Discharge Summary Sheet rn - Dehydration, Adult rn - Syncope rn Forms: - Medication Reconciliation Form rn - Thank You Letter rn - Antibiotic rn wound care - Prescription Opioid Use rn NIH Stroke Scale - NIH Stroke Score Date: 08/03/2022 Time: 12:54 Total Score = 0 10. Dysarthria (speech clarity - read or repeat words) - 0(Normal) 11. Extinction and Inattention (visual/tactile/auditory/spatial/personal) - 0(No abnormality) 1a. Level of Consciousness (LOC) - 0(Alert) 1b. Level of Consciousness (LOC) (Month \T\ Age) - 0(Both) 1c. LOC Commands (Open \T\ Closes Eyes/Regulatory Affairs Coordinator) - 0(Both) 2. Best Gaze (Lateral Gaze Paresis) - 0(Normal) 3. Visual Field Loss - 0(No visual loss) 4. Facial Palsy - 0(Normal) 5a. Left Arm: Motor (10-second hold) - 0(No drift) 5b. Right Arm: Motor (10-second hold) - 0(No drift) 6a. Left Leg: Motor (5-second hold - always test supine) - 0(No drift) 6b. Right Leg: Motor (5-second hold - always test supine) - 0(No drift) 7. Limb Ataxia (finger/nose \T\ heel/vela - test with eyes open) - 0(Absent) 8. Sensory Loss (pinprick arms/legs/face) - 0(Normal) 9. Best Language: Aphasia (description/naming/reading) - 0(No aphasia) Initials: ld1 Signatures: Dispatcher [employer] EDCharo Abarca Roman, MD MD rn Sims, Lauren, RN RN ld1 Tracy Leos RN RN nj1 Corrections: (The following items were deleted from the chart) 14:06 14:05 Allergies: No Known Allergies; ld1 ld1
--- NOTE | 2022-08-03 17:02 | ER ---
Nurse's Notes [facility] Name: Aj Caraballo Age: 87 yrs Sex: Male : 1935 Arrival Date: 08/03/2022 Time: 12:50 Bed 5 Private MD: Diagnosis: Syncope Presentation: 08/03 12:54 Chief complaint: EMS states: toned out to patient home for syncopal episode. EMS ld1 reports witnessing patient pass out while sitting in chair. Coronavirus screen: At this time, the client does not indicate any symptoms associated with coronavirus-19. Ebola Screen: No symptoms or risks identified at this time. Initial Sepsis Screen: Does the patient meet any 2 criteria? No. Patient's initial sepsis screen is negative. Does the patient have a suspected source of infection? No. Patient's initial sepsis screen is negative. Risk Assessment: Do you want to hurt yourself or someone else? Patient reports no desire to harm self or others. Onset of symptoms was August 03, 2022. 12:54 Method Of Arrival: EMS: [facility] ld1 12:54 Acuity: GUTIERREZ 3 ld1 Triage Assessment: 12:58 General: Appears in no apparent distress. comfortable, Behavior is calm, cooperative, ld1 appropriate for age. Pain: Denies pain. EENT: No signs and/or symptoms were reported regarding the EENT system. Neuro: Level of Consciousness is awake, alert, obeys commands, Oriented to person, place, time, situation, Reports a syncopal episode. Cardiovascular: Capillary refill < 3 seconds Patient's skin is warm and dry. Rhythm is sinus rhythm. Respiratory: Airway is patent Respiratory effort is even, unlabored. GI: Abdomen is flat, non-distended. : No signs and/or symptoms were reported regarding the genitourinary system. Derm: No signs and/or symptoms reported regarding the dermatologic system. Musculoskeletal: No signs and/or symptoms reported regarding the musculoskeletal system. Historical: - Allergies: 14:06 Lidocaine; ld1 - Home Meds: 14:05 Eliquis 5 mg oral tablet once [Active]; ld1 - PMHx: 14:05 Atrial fibrillation; Hypothyroidism; ld1 - PSHx: 14:05 None; ld1 - Immunization history:: Adult Immunizations up to date, Client reports receiving the 2nd dose of the Covid vaccine. - Social history:: Smoking status: Patient denies any tobacco usage or history of. Patient/guardian denies using alcohol. - Family history:: not pertinent. - Hospitalizations: : No recent hospitalization is reported. Screenin:52 [facility] ED Fall Risk Assessment (Adult) History of falling in the last 3 months, ld1 including since admission No falls in past 3 months (0 pts). Abuse screen: Denies threats or abuse. Denies injuries from another. Nutritional screening: No deficits noted. Tuberculosis screening: No symptoms or risk factors identified. Assessment: 12:52 Reassessment: See triage assessment. ERP at bedside assessing patinet. ld1 14:30 Reassessment: Patient appears in no apparent distress at this time. No changes from ld1 previously documented assessment. Patient and/or family updated on plan of care and expected duration. Pain level reassessed. Patient is alert, oriented x 3, equal unlabored respirations, skin warm/dry/pink. 17:19 Reassessment: Patient appears in no apparent distress at this time. No changes from ld1 previously documented assessment. Patient and/or family updated on plan of care and expected duration. Pain level reassessed. Patient is alert, oriented x 3, equal unlabored respirations, skin warm/dry/pink. Vital Signs: 12:54 BP 130 / 56; Pulse 64; Resp 16; Temp 97.6(A); Pulse Ox 100% on R/A; Weight 66.5 kg; ld1 Height 5 ft. 9 in. ; Pain 0/10; 14:03 BP 126 / 74; Pulse 66; Resp 18; Pulse Ox 98% on R/A; ld1 15:32 BP 143 / 80; Pulse 68; Resp 18; Pulse Ox 100% ; ld1 16:43 BP 144 / 100; Pulse 71; Resp 18; Pulse Ox 95% on R/A; ld1 12:54 Body Mass Index 21.65 (66.50 kg, 175.26 cm) ld1 12:54 Pain Scale: Adult ld1 NIH Stroke Scale Scores: 12:54 NIHSS Score: 0 ld1 ED Course: 12:52 Patient arrived in ED. ph 12:52 Patient has correct armband on for positive identification. Placed in gown. Bed in low ld1 position. Call light in reach. Side rails up X2. hall monitor on. Pulse ox on. NIBP on. Door closed. Noise minimized. Warm blanket given. 12:52 No provider procedures requiring assistance completed. Maintain EMS IV. Dressing ld1 intact. Good blood return noted. Site clean \T\ dry. Gauge \T\ site: 20g RAC. 12:55 Jamie Marte MD is Attending Physician. rn 12:56 Triage completed. ld1 12:58 Leslee Mondragon, KELSIE is Primary Nurse. ld1 12:58 Arm band placed on right wrist. ld1 13:13 CT Head Brain wo Cont In Process Unspecified. EDMS 13:46 Chest Single View XRAY In Process Unspecified. EDMS 17:20 IV discontinued, intact, bleeding controlled, No redness/swelling at site. ld1 Administered Medications: 14:03 Drug: Magnesium Sulfate IVPB 1 grams Route: IVPB; Infused Over: 1 hrs; Site: left ld1 antecubital; 15:10 Drug: NS 0.9% IV 500 ml Route: IV; Rate: bolus; Site: left antecubital; nj1 Medication: 12:52 VIS not applicable for this client. ld1 Outcome: 17:01 Discharge ordered by . rn 17:19 Discharged to home via wheelchair, with family. ld1 17:19 Condition: stable 17:19 Discharge instructions given to patient, family, Instructed on discharge instructions, follow up and referral plans. Demonstrated understanding of instructions, follow-up care. 17:20 Patient left the ED. ld1 NIH Stroke Scale - NIH Stroke Score Date: 08/03/2022 Time: 12:54 Total Score = 0 10. Dysarthria (speech clarity - read or repeat words) - 0(Normal) 11. Extinction and Inattention (visual/tactile/auditory/spatial/personal) - 0(No abnormality) 1a. Level of Consciousness (LOC) - 0(Alert) 1b. Level of Consciousness (LOC) (Month \T\ Age) - 0(Both) 1c. LOC Commands (Open \T\ Closes Eyes/Butcher Head) - 0(Both) 2. Best Gaze (Lateral Gaze Paresis) - 0(Normal) 3. Visual Field Loss - 0(No visual loss) 4. Facial Palsy - 0(Normal) 5a. Left Arm: Motor (10-second hold) - 0(No drift) 5b. Right Arm: Motor (10-second hold) - 0(No drift) 6a. Left Leg: Motor (5-second hold - always test supine) - 0(No drift) 6b. Right Leg: Motor (5-second hold - always test supine) - 0(No drift) 7. Limb Ataxia (finger/nose \T\ heel/vela - test with eyes open) - 0(Absent) 8. Sensory Loss (pinprick arms/legs/face) - 0(Normal) 9. Best Language: Aphasia (description/naming/reading) - 0(No aphasia) Initials: ld1 Signatures: Dispatcher [employer] EDMS Jamie Marte MD MD rn Hall, Patricia, RN RN Leslee Mondragon RN RN ld1 Tracy Leos RN RN nj1 Corrections: (The following items were deleted from the chart) 14:06 14:05 Allergies: No Known Allergies; ld1 ld1
[2022-08-03 18:19] VITALS: TEMP 97.6
[2022-08-03 18:24] VITALS: BP 144/100; O2SAT 95
--- NOTE | 2022-08-04 08:11 | EKG ---
Test Date: 2022-08-03 Test Time: 13:03:34 [facility] Manager: López PETERSON MEASUREMENT RESULTS: Intervals: Rate: 69 MD: QRSD: 82 QT: 438 QTc: 469 [place]: P: MD: QRS: -73 T: 42 INTERPRETIVE STATEMENTS: Atrial fibrillation with frequent ventricular-paced complexes and with premature ventricular or aberrantly conducted complexes Left axis deviation Septal infarct, age undetermined Abnormal ECG No previous ECG available for comparison Electronically Signed On 08-04-22 08:10:56 CDT by Hayden Jones
== END 2022-08-03 17:20 | disposition home or self-care (01) ==
LOC: ER 12:50
DX: R55 Syncope and collapse (principal); I48.91 Unspecified atrial fibrillation; Z79.01 Long term (current) use of anticoagulants; Z88.4 Allergy status to anesthetic agent
CPT/HCPCS: 93005; 85025; 81001; 80048; 36415; 83735; 85610; 82947; 80076; 85730; 84484; 83880; 70450; 71045; 96374; 99285; J3475; J7040